=== PATIENT | female | born 1995 | race Caucasian/White ===

== ENCOUNTER 2019-02-21 23:19 | Emergency (ER) | payer OTHER ==
[~2019-02-21] VITALS: Ht 160 cm; Wt 59.0 kg
--- NOTE | 2019-02-22 00:02 | NUR ---
AZUCENA FROM STREET C/O GENERALIZED WEAKNESS. PER RA, PT DONATED PLASMA EARLIER TODAY. PT AAOX4. RESPIRATIONS EVEN AND UNLABORED. SKIN INTACT. NO ACUTE DISTRESS NOTED AT THIS TIME. WILL CONTINUE TO MONITOR
[2019-02-22 00:19] LABS: BASOPHILS % (AUTO) 0.4 % (0.0-2.0); EOSINOPHILS % (AUTO) 1.6 % (0.0-6.0); HEMATOCRIT 41 % (33-45); HEMOGLOBIN 13.5 g/dL (11.5-14.8); LYMPHOCYTES # (AUTO) 3.3 /CMM (0.8-4.8); LYMPHOCYTES % (AUTO) 32.3 % (20.0-44.0); MEAN CORPUSCULAR HGB CONC 33 g/dl (31.0-36.0); MEAN CORPUSCULAR VOLUME 89 fL (82-100); MONOCYTES # (AUTO) 0.8 /CMM (0.1-1.30); MONOCYTES % (AUTO) 7.9 % (2.0-12.0); NEUTROPHILS # (AUTO) 5.9 /CMM (1.8-8.9); NEUTROPHILS % (AUTO) 57.8 % (43.0-81.0); PLATELET COUNT (AUTO) 247 /CMM (150-450); RED BLOOD CELL COUNT(AUTO) 4.62 MIL/uL (4.0-5.2); WHITE BLOOD COUNT (AUTO) 10.3 K/uL (4.3-11.0)
[2019-02-22 00:36] LABS: CREATININE 1.1 mg/dL (0.6-1.3); POTASSIUM 3.7 mmol/L (3.5-5.1)
[2019-02-22] MEDS: IV NS 0.9% 1,000 ML BAG IV ONE (00:55)
--- NOTE | 2019-02-22 02:00 | NUR ---
UPON DISCHARGE, PT NOW COMPLAINING OF BACK PAIN AND DIFFICULTY WALKING. ER MD AWARE
[2019-02-22] MEDS ORDERED: IBUPROFEN 400 MG TABLET ONE (03:14)
[2019-02-22] MEDS: IBUPROFEN 400 MG TABLET PO ONE (03:23)
--- NOTE | 2019-02-22 03:45 | NUR ---
Patient discharged to home in stable condition. Written and verbal after care instructions given. Patient verbalizes understanding of instruction.Pt ambulatory with a steady gait
[2019-02-22 03:48] VITALS: BP 124/87
== END 2019-02-22 03:49 | disposition home or self-care (01) ==
LOC: EDBD 23:21 → ER 23:21
DX: R53.1 Weakness (principal); M54.5 Low back pain
CPT/HCPCS: 36415; 72110; 80048; 85025; 99284; J7030 ×2